=== PATIENT | female | born 1945 | race African-American/Black ===

== ENCOUNTER 2018-01-12 02:41 | Emergency (ER) | payer OTHER ==
[~2018-01-12] VITALS: Ht 175.3 cm; Wt 95.0 kg
[~2018-01-12 02:41] MED LIST: ATEN50TA; ATOR40TA70; ENAL20TA; FAMO40TA7; HYDR25TA; METF500T6; MIRT7.5T11; POTA10TA2; TRAZ-212
[2018-01-12 04:17] LABS: BASOPHILS % 0.7 % (0.0-2.0); EOSINOPHILS % 5.4 % (0.0-5.0); HEMATOCRIT. 31.7 % (36.0-48.0); HEMOGLOBIN. 10.2 g/dL (12.0-16.0); LYMPHOCYTES % 31.8 % (20.0-50.0); MEAN CORPUSCULAR HEMOGLOBIN 29.6 pg (28.0-32.0); MEAN CORPUSCULAR VOLUME 91.8 fL (81.0-99.0); MONOCYTES % 12.8 % (2.0-8.0); NEUTROPHILS % 49.3 % (40.0-76.0); PLATELET 164 x1000/uL (130-400); RED BLOOD CELL COUNT 3.46 mill/uL (4.2-5.4); RED CELL DISTRIBUTION WIDTH 14.5 % (11.6-14.6)
[2018-01-12 04:21] LABS: PROTHROMBIN TIME 9.8 sec (9.1-11.1)
[2018-01-12 04:27] LABS: CHLORIDE 107 mEq/L (98-107)
[2018-01-12 05:45] VITALS: BP 152/57
== END 2018-01-12 05:45 | disposition home or self-care (01) ==
LOC: ER 02:41
DX: R04.0 Epistaxis (principal); I10 Essential (primary) hypertension; E11.9 Type 2 diabetes mellitus without complications; E78.00 Pure hypercholesterolemia, unspecified; K92.2 Gastrointestinal hemorrhage, unspecified; Z88.6 Allergy status to analgesic agent; Z88.0 Allergy status to penicillin; Z88.1 Allergy status to other antibiotic agents; Z88.2 Allergy status to sulfonamides; Z79.899 Other long term (current) drug therapy; Z87.440 Personal history of urinary (tract) infections
CPT/HCPCS: 36415; 80048; 85025; 85610; 99284

== ENCOUNTER 2022-03-10 16:03 | Emergency (ER) | payer OTHER ==
[~2022-03-10] VITALS: Ht 167.6 cm; Wt 100.0 kg
[~2022-03-10 16:03] MED LIST changes: -ENAL20TA; +ENAL20TA18; +METF-414; -METF500T6; -TRAZ-212; +TRAZ-251
[2022-03-10 17:36] LABS: BASOPHILS % 0.5 % (0.0-2.0); EOSINOPHILS % 1.3 % (0.0-5.0); HEMATOCRIT. 38.7 % (36.0-48.0); HEMOGLOBIN. 12.7 g/dL (12.0-16.0); LYMPHOCYTES % 30.5 % (20.0-50.0); MEAN CORPUSCULAR HEMOGLOBIN 30.6 pg (28.0-32.0); MEAN CORPUSCULAR VOLUME 93.7 fL (81.0-99.0); MEAN PLATELET VOLUME 11.2 fl (7.4-10.4); MONOCYTES % 11.9 % (2.0-8.0); NEUTROPHILS % 55.8 % (40.0-76.0); PLATELET 150 x1000/uL (130-400); RED BLOOD CELL COUNT 4.13 mill/uL (4.2-5.4); RED CELL DISTRIBUTION WIDTH 13.5 % (11.6-14.6)
[2022-03-10 17:49] LABS: CHLORIDE 105 mEq/L (98-107)
[2022-03-10] MEDS ORDERED: ACETAMINOPHEN 325MG TABLET PO NR (19:00)
[2022-03-10 21:45] VITALS: BP 130/77
[2022-03-10 21:47] LABS: CLARITY URINE CLEAR (CLEAR); COLOR URINE YELLOW (YELLOW); KETONES URINE NEGATIVE (NEGATIVE); LEUKOCYTE ESTERASE URINE 3+ (NEGATIVE); NITRITE URINE NEGATIVE (NEGATIVE); OCCULT BLOOD URINE NEGATIVE (NEGATIVE); PH URINE 6.5 (4.5-8.0); PROTEIN URINE NEGATIVE (NEGATIVE); SPECIFIC GRAVITY URINE 1.006 (1.005-1.030); UROBILINOGEN URINE 0.2 E.U./dL (0.2-1.0)
[2022-03-10] MEDS ORDERED: LEVOFLOXACIN 750MG PREMIX 150 ML IV NR (22:45)
[2022-03-10] MEDS ORDERED: LEVOFLOXACIN 250MG TABLET PO ONE (22:45)
== END 2022-03-10 23:00 | disposition short-term general hospital (02) ==
LOC: ER 16:03 → CANBEDREQ 03-11 01:24
DX: R07.89 Other chest pain (principal); I48.91 Unspecified atrial fibrillation; D64.9 Anemia, unspecified; E11.9 Type 2 diabetes mellitus without complications; E78.00 Pure hypercholesterolemia, unspecified; I10 Essential (primary) hypertension; Z87.440 Personal history of urinary (tract) infections; Z79.899 Other long term (current) drug therapy; Z88.0 Allergy status to penicillin; Z20.822 Contact with and (suspected) exposure to COVID-19
CPT/HCPCS: 36415; 71045; 80053; 81003; 83880; 84484; 85025; 87040; 87077; 87086; 87186; 87426; 87804; 93005; 99285; C9803